=== PATIENT | male | born 1985 | race Two or more races ===

== ENCOUNTER 2017-12-01 03:07 | Emergency (ER) | payer OTHER ==
[~2017-12-01] VITALS: Ht 167.6 cm; Wt 112.5 kg
[2017-12-01] MEDS ORDERED: NKM (03:11)
[2017-12-01 03:19] VITALS: BP 129/82
--- NOTE | 2017-12-01 03:40 | Emergency Room Report ---
History of Present Illness General Chief Complaint: Laceration Source: Patient Present Illness HPI Is a 32-year-old male who is right-hand dominant. He presents with a laceration to his index and third finger. He was cutting an onion with a mandolin and sliced his finger. This occurred just prior to arrival. This occurred at work. Bleeding controlled with a tourniquet. Allergies: Coded Allergies: No Known Allergies (Unverified , 12/01/17) Patient History Past Medical History: see triage record, old chart reviewed Past Surgical History: none Pertinent Family History: none Social History: Denies: smoking Immunizations: other Reviewed Nursing Documentation: PMH: Agreed, PSxH: Agreed Nursing Documentation-PMH Past Medical History: No Stated History Review of Systems Eye: Denies: eye pain, blurred vision ENT: Denies: ear pain, nose congestion, throat swelling Respiratory: Denies: cough, shortness of breath Cardiovascular: Denies: chest pain, palpitations Gastrointestinal: Denies: abdominal pain, diarrhea, nausea, vomiting Musculoskeletal: Denies: back pain, joint pain Skin: Denies: rash Neurological: Denies: headache, numbness Endocrine: Denies: increased thirst, increased urine Hematologic/Lymphatic: Denies: easy bruising All Other Systems: negative except mentioned in HPI Physical Exam Vital Signs Date Time Temp Pulse Resp B/P (MAP) Pulse Ox O2 Delivery O2 Flow Rate FiO2 12/01/17 03:11 98.2 83 16 129/82 98 Room Air vitals normal Sp02 EP Interpretation: reviewed, normal General Appearance: well appearing, no apparent distress, alert Head: normocephalic, atraumatic Eyes: bilateral eye PERRL, bilateral eye EOMI ENT: hearing grossly normal, normal pharynx Neck: full range of motion, supple, no meningismus Respiratory: chest non-tender, lungs clear, normal breath sounds Cardiovascular #1: regular rate, rhythm, no murmur Gastrointestinal: normal bowel sounds, non tender, no mass, no organomegaly, no bruit, non-distended Musculoskeletal: back normal, gait/station normal, normal range of motion, other - Right index finger: There is a 2 cm laceration to the tip. Does not involve the nailbed. Sensation normal. No tendon laceration. 3rd finger: 4cm lac. no fb. no tendon lac. Neurologic: alert, oriented x3 Psychiatric: mood/affect normal Skin: warm/dry Procedures Laceration/Wound Repair Laceration/Wound Repair : Consent: Verbal Wound Location: upper extremity Wound's Depth, Shape: into muscle, flap, contused tissue Wound Length (cm): 6 Wound Explored: clean Irrigated w/ Saline (ccs): 1000 Betadine Prep?: Yes Anesthesia: 1% Lidocaine Volume Anesthetic (ccs): 5 Wound Debrided: minimal Wound Repaired With: sutures Suture Size/Type: 6:0, nylon Number of Sutures: 13 Patient Tolerated: Well Complications: None Medical Decision Making Diagnostic Impression: Primary Impression: Laceration of finger Qualified Codes: S61.210A - Laceration without foreign body of right index finger without damage to nail, initial encounter Additional Impression: Laceration of finger of right hand Qualified Codes: S61.212A - Laceration without foreign body of right middle finger without damage to nail, initial encounter ER Course Patient presents with avulsion laceration to the index and third finger of the right hand. No foreign body. No tendon laceration. We'll discharge home. Last Vital Signs Date Time Temp Pulse Resp B/P (MAP) Pulse Ox O2 Delivery O2 Flow Rate FiO2 12/01/17 03:19 98.2 83 16 129/82 98 Room Air Status: improved Disposition: HOME, SELF-CARE Condition: Stable Scripts Ibuprofen* (MOTRIN*) 600 Mg Tablet 600 MG ORAL Q8H Y for For Pain, #30 TAB 0 Refills Prov: MAXI MURDOCK M.D. 12/01/17 Cephalexin* (KEFLEX*) 500 Mg Capsule 500 MG ORAL TID, #21 CAP 0 Refills Prov: MAXI MURDOCK M.D. 12/01/17 Patient Instructions: Laceration Care, Adult Additional Instructions: Followup with your DrAndres in 7-10 days. Suture out in 7-10 days. Return to worse. MAXI MURDOCK M.D. Dec 01, 2017 03:40
[2017-12-01] MEDS: Tetanus/Diptheria/Pertussis Vaccine 0.5ml Syr IM ONE (03:48)
[2017-12-01] MEDS ORDERED: IBUPROFEN600 MG ORAL (04:20)
[2017-12-01] MEDS ORDERED: KEFLEX500 MG ORAL (04:20)
[2017-12-01 04:25] VITALS: BP 129/82
== END 2017-12-01 04:25 | disposition home or self-care (01) ==
LOC: EMR 03:20
DX: S61.210A Laceration without foreign body of right index finger without damage to nail, initial encounter (principal); S61.212A Laceration without foreign body of right middle finger without damage to nail, initial encounter; W26.0XXA Contact with knife, initial encounter; Y93.G1 Activity, food preparation and clean up; Y92.59 Other trade areas as the place of occurrence of the external cause; Y99.0 Civilian activity done for income or pay; Z23 Encounter for immunization
CPT/HCPCS: 90471; 90715; 99283